=== PATIENT | male | born 1995 | race Caucasian/White ===

== ENCOUNTER 2019-02-15 22:29 | Emergency (ER) | payer OTHER, SELFPAY ==
[2019-02-15 22:30] VITALS: BP 120/69; PULSE 71; RESP 18; TEMP 36.7; O2SAT 98; BMI 19.3
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
[2019-02-16 02:01] VITALS: BP 117/68; PULSE 72; RESP 16; O2SAT 99
== END 2019-02-16 02:02 | disposition home or self-care (01) ==
PROVIDERS: Emergency Provider Emergency Medicine; Family Provider Physician Assistant; PCP Physician Assistant
DX: S40.811A Abrasion of right upper arm, initial encounter (principal); S50.312A Abrasion of left elbow, initial encounter; S40.212A Abrasion of left shoulder, initial encounter; S70.211A Abrasion, right hip, initial encounter; S70.212A Abrasion, left hip, initial encounter; S80.211A Abrasion, right knee, initial encounter; S80.212A Abrasion, left knee, initial encounter; M54.2 Cervicalgia; R07.9 Chest pain, unspecified; V28.4XXA Motorcycle driver injured in noncollision transport accident in traffic accident, initial encounter; Y93.9 Activity, unspecified; Y92.410 Unspecified street and highway as the place of occurrence of the external cause; Y99.9 Unspecified external cause status
CPT/HCPCS: 70450; 71046; 72125; 73030; 73080; 73502; 99282